=== PATIENT | male | born 1975 | race Hispanic/Latino ===

== ENCOUNTER 2023-08-20 13:09 | Emergency (ER) | payer SELFPAY ==
[2023-08-20] VITALS (8 sets, daily range): BP systolic 117–133; BP diastolic 73–94; PULSE 60–75; RESP 16–20; TEMP 36.7; O2SAT 94–100
--- NOTE | ~2023-08-20 | XR_ITS ---
EXAMINATION: XR chest 1V portable DATE: 08/20/2023 15:06 INDICATION: Left arm pain. TECHNIQUE: A single frontal view of the chest was obtained. COMPARISON: Chest 2 views 02/08/2017 FINDINGS: There is no pneumonia, pleural effusion, or pneumothorax. The heart size is normal. IMPRESSION: 1. No acute cardiopulmonary disease. Reviewed, dictated and finalized at location A.
--- NOTE | 2023-08-20 13:10 | ECG_ITS ---
Measurements Intervals [place] Rate: 64 P: 24 MN: 168 QRS: 30 QRSD: 96 T: 75 QT: 351 QTc: 364 Interpretive Statements SINUS RHYTHM CONSIDER INFERIOR INFARCT, AGE INDETERMINATE BORDERLINE T WAVE ABNORMALITY- ANTEROLAT/HIGH LAT LEADS BASELINE ARTIFACT- I, II, III, AVR, AVL, AVF BORDERLINE ECG NO PREVIOUS ECG AVAILABLE FOR COMPARISON Electronically Signed On 08-20-2023 15:20:17 CDT by Woody Lucas D.O.
--- NOTE | 2023-08-20 14:57 | ED.GENADULT ---
HPI - General Adult General Chief complaint: Chest Pain Stated complaint: not feeling well Time Seen by Provider: 08/20/23 14:19 History of Present Illness HPI narrative: 48-year-old male present to the emergency department for evaluation of left side chest pain that radiated down his left arm. Patient states the pain is typically short lasting. Patient denies any associated shortness of breath. Patient also noticed that he had some decreased movement of his 4th and 5th fingers of his right hand. Patient denies any prior history of ID and denies any prior history of CVA. Patient denies any other focal numbness or weakness. Patient has no prior history of PE or DVT. Related Data Home Medications Medication Instructions Recorded Confirmed aspirin 81 mg tablet,delayed 81 mg PO DAILY 08/29/19 08/20/23 release (Adult Low Dose Aspirin) Allergies Allergy/AdvReac Type Severity Reaction Status Date / Time No Known Allergies Allergy Verified 04/09/23 13:25 Review of Systems Review of Systems: All systems reviewed & are unremarkable except as noted in HPI and below PMFSH Past Medical History Medical History (Updated 08/20/23 @ 18:51 by Robby Boyd MD) Alcohol consumption binge drinking Essential hypertension Hyperlipidemia, unspecified (03/03/19) Pre-diabetes Sleep apnea Unilateral inguinal hernia without obstruction or gangrene Family History Family History Mother Hypertension Patient's mother is in good health Family history of elevated blood lipids Family history of type 2 diabetes mellitus Father Patient's father is in good health Social History Social History Smoking status: Never smoker Second hand tobacco smoke exposure: No Alcohol intake: current Drinks per week: 3 Substance use: never Substance use type: does not use Lack of Transportation: No Lack of Food: Never True Current Housing: I Have Housing Concerned About Future Housing: No Difficulty Paying Gas/Electric Bills: No Difficulty Paying for Meds: No Currently Unemployed: No Education: Decline to Answer Difficulty w/ Childcare or Family Care: No Living arrangements: with family Gender identity (if verbalized by the patient): Male Sexual Orientation (if Verbalized by the Patient): Straight or Heterosexual Spiritual care concerns: No Agree to blood products: Yes Exam Narrative: APPEARANCE: Well appearing, no pain, no distress, well-nourished. HEAD: normocephalic, atraumatic. EYES: PERRLA/EOMI, conjunctivae clear. NOSE: Normal no drainage EARS:TMS clear with good light reflex. THROAT: Pharynx clear, no exudate. NECK: Supple. No adenopathy, no masses. RESPIRATORY: Airway patent, respirations nonlabored. Clear to auscultation bilaterally, no rales, rhonchi, wheezing. CARDIOVASCULAR: Regular rate and rhythm without murmurs rubs or gallops. ABDOMINAL: Soft, nontender, nondistended, normal bowel sounds MUSCULOSKELETAL: Normal strength reflexes bilaterally for upper extremities. 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 NEURO: Alert. Cranial nerves II through XII intact. Good gait. Good coordination SKIN: Warm, dry. Normal Color Course Course Emergency Course: patient felt improved with treatment was encouraged to have close follow-up with his primary care physician for additional outpatient cardiac testing per Vital Signs Vital signs: Vital Signs Temperature 98.0 F 08/20/23 13:13 Pulse Rate 72 08/20/23 13:13 Respiratory Rate 16 08/20/23 13:13 Blood Pressure 133/94 H 08/20/23 13:13 Pulse Oximetry 98 08/20/23 13:13 Oxygen Delivery Room Air 08/20/23 13:13 Temperature 98.0 F 08/20/23 13:13 Pulse Rate 71 08/20/23 19:07 Respiratory Rate 18 08/20/23 19:07 Blood Pressure
[2023-08-20 15:17] LABS: Basophils Absolute Auto 0.1 K/mm3 (0.0-0.1); Basophils Percent Auto 0.6 % (0.2-1.2); Eosinophils Absolute Auto 0.1 K/mm3 (0-0.3); Eosinophils Percent Auto 1.1 % (0-4.4); Hematocrit 42.3 % (42.0-52.0); Hemoglobin 14.6 g/dL (14.0-18.0); Immature Granulocyte Absolute 0.02 K/mm3 (0.00-0.031); Immature Granulocyte Percent A 0.3 % (0-0.5); Lymphocytes Absolute Auto 1.31 K/mm3 (0.9-3.2); Lymphocytes Percent Auto 16.6 % (18.3-44.2); Mean Corpuscular HGB Conc 34.5 g/dl (32-36); Mean Corpuscular Hemoglobin 29.3 pg (26-34); Mean Corpuscular Volume 84.8 fl (80-100); Mean Platelet Volume 9.9 fl (7.4-10.4); Monocytes Absolute Auto 0.5 K/mm3 (0.1-0.6); Monocytes Percent Auto 5.9 % (2.6-8.5); Neutrophils Percent Auto 75.5 % (45.5-73.1); Platelet Count Result 206 k/mm3 (150-375); Red Blood Count 4.99 M/mm3 (4.6-6.20); Red Cell Distribution Width 13.1 % (11.5-14.5); White Blood Count 7.9 K/mm3 (4.5-10.0)
[2023-08-20 15:26] LABS: Prothrombin Time 13.8 Seconds (11.1-14.7)
[2023-08-20 15:29] LABS: Alanine Aminotransferase 26 U/L (6-50); Albumin Level 4.5 g/dL (3.5-5.1); Alkaline Phosphatase 60 U/L (38-126); Anion Gap 5 mmol/L (4-12); Aspartate Amino Transferase 26 U/L (17-59); Bilirubin,Total 0.6 mg/dL (0.2-1.3); Blood Urea Nitrogen 12 mg/dL (9-20); Calcium 9.7 mg/dL (8.4-10.2); Carbon Dioxide 29 mmol/L (22-30); Chloride 103 mmol/L (98-107); Estimated CRCL calculation 121 ml/min; Estimated Glomerular Filt Rate > 60; Glucose 131 mg/dL (65-110); Sodium 137 mmol/L (137-145)
[2023-08-20 15:40] LABS: NT Pro B Type Natriuretic Pept 63 pg/mL (19.9-100); Troponin I < 0.012 ng/mL (0.000-0.034)
[2023-08-20 15:45] LABS: Potassium 3.1 mmol/L (3.4-5.0)
[2023-08-20 16:03] LABS: D Dimer < 0.27 ug/mL (<0.48)
[2023-08-20] MEDS: ASPIRIN 81 MG CHEWABLE TABLET 324 MG PO (16:07)
[2023-08-20] MEDS: NITROGLYCERIN SL 0.4 MG TABLET SUBLINGUAL (16:08)
--- NOTE | 2023-08-20 18:09 | ECG_ITS ---
Measurements Intervals [place] Rate: 62 P: 14 [place]: 189 QRS: 34 QRSD: 97 T: 84 QT: 361 QTc: 367 Interpretive Statements SINUS RHYTHM CONSIDER INFERIOR INFARCT, AGE INDETERMINATE BORDERLINE ST-T WAVE ABNORMALITY- ANT/HIGH LEADS BASELINE ARTIFACT- I, II, AVR, AVL, AVF ABNORMAL ECG COMPARED TO ECG 08/20/2023 15:17:56 NO SIGNIFICANT CHANGES Electronically Signed On 08-21-2023 7:26:08 CDT by Woody Lucas D.O.
[2023-08-20 18:43] LABS: Troponin I < 0.012 ng/mL (0.000-0.034)
== END 2023-08-20 19:09 | disposition home or self-care (01) ==
PROVIDERS: Emergency Provider Emergency Medicine; PCP Family Medicine
DX: M79.602 Pain in left arm (principal); M79.642 Pain in left hand; I10 Essential (primary) hypertension; E78.5 Hyperlipidemia, unspecified; R73.03 Prediabetes; G47.30 Sleep apnea, unspecified; Z79.82 Long term (current) use of aspirin; R94.31 Abnormal electrocardiogram [ECG] [EKG]
CPT/HCPCS: 36415; 71045; 80053; 83880; 84484; 85025; 85380; 85610; 85730; 93005; 99284; A9270

== ENCOUNTER 2024-05-26 17:05 | Emergency (ER) | payer OTHER, SELFPAY ==
[2024-05-26 17:25] VITALS: BP 140/84; PULSE 83; RESP 16; TEMP 36.8; O2SAT 99
[2024-05-26 17:27] LABS: EDUAAPPEAR Clear; EDUABILI Negative (Negative); EDUABLOOD Negative (Negative); EDUACOLOR1 Yellow; EDUAGLUCOSE Negative (Negative); EDUAKETONE Negative (Negative); EDUALEUKO Negative (Negative); EDUANITRATE Negative (Negative); EDUAPH 5.5; EDUAPROTEIN Negative (Negative); EDUAUROBILI 0.2
--- NOTE | 2024-05-26 19:08 | ED.MALEGU ---
HPI - Male Genitourinary General Chief complaint: Urogenital-Male Stated complaint: UTI symptoms Source: patient, RN notes reviewed and old records reviewed Mode of arrival: ambulatory Limitations: no limitations History of Present Illness HPI Narrative: Patient presents accompanied by his . He is complaining of difficulty starting urine stream for the past several days. He denies any dysuria. He denies any injury or trauma. He denies any pain. Denies any fever, chills, sweats. Denies any back pain. Related Data Home Medications ?Medication ?Instructions ?Recorded ?Confirmed ?Last Taken ?Type aspirin 81 mg tablet,delayed 81 mg PO DAILY 08/29/19 10/08/23 Unknown History release (Adult Low Dose Aspirin) Allergies Allergy/AdvReac Type Severity Reaction Status Date / Time No Known Allergies Allergy Verified 05/26/24 18:03 Review of Systems Review of Systems: All systems reviewed & are unremarkable except as noted in HPI and below Constitutional: Constitutional: Reports no additional constitutional complaints ENT: Reports system reviewed and no additional complaints, except as documented Cardiovascular: Cardiovascular: Reports no additional cardiovascular complaints Respiratory: Respiratory: Reports no additional respiratory complaints Gastrointestinal: Gastrointestinal: Reports no additional gastrointestinal complaints Genitourinary: Genitourinary: Reports urinary hesitancy [facility] Past Medical History Medical History Alcohol consumption binge drinking Essential hypertension Hyperlipidemia, unspecified (03/03/19) Pre-diabetes Sleep apnea Unilateral inguinal hernia without obstruction or gangrene Family History Family History Mother Hypertension Patient's mother is in good health Family history of elevated blood lipids Family history of type 2 diabetes mellitus Father Patient's father is in good health Social History Social History Smoking status: Never smoker Second hand tobacco smoke exposure: No Alcohol intake: current Drinks per week: 3 Substance use: never Substance use type: does not use Lack of Transportation: No Lack of Food: Never True Current Housing: I Have Housing Concerned About Future Housing: No Difficulty Paying Gas/Electric Bills: No Difficulty Paying for Meds: No Currently Unemployed: No Education: Decline to Answer Difficulty w/ Childcare or Family Care: No Living arrangements: with family Gender identity (if verbalized by the patient): Male Sexual Orientation (if Verbalized by the Patient): Straight or Heterosexual Spiritual care concerns: No Agree to blood products: Yes Comments At the time of my signature, I reviewed and agree with the nursing past medical, surgical, social, and family history. There is no relevant family history pertinent to the patient complaint. Exam Const: General: cooperative, no acute distress, alert and awake Orientation/consciousness: oriented to person, oriented to place and oriented to time HENMT: Head: normal to inspection Resp: Effort & Inspection: normal respiratory effort and able to speak in complete sentences Auscultation: clear to auscultation bilaterally, no crackles, no rales, no rhonchi and no wheezes Cardio: Palpation: normal PMI Rate: regular rate Rhythm: regular rhythm Heart sounds: S1 normal heart sound present and S2 normal heart sound present : General: Yes no CVA tenderness Neuro: General: oriented to person, oriented to place and oriented to time Cranial nerves: Yes CN's II-XII intact bilaterally Psych: Appearance: grossly normal Thought process: Normal thought process present Insight: Good insight present (Psych) Judgement: Good judgement present (Psych) Course Course Level of Care: Express Care Visit Vital Signs Vital signs: Vital Signs Temperature 98.2 F 05/26/24 17:25 Pulse Rate 83 05/26/24 17:25 Respiratory Rate 16 05/26/24 17:25 Blood Pressure 140/84 05/26/24 17:25 Pulse Oximetry 99 05/26/24 17:25 Oxygen Delivery Room Air 05/26/24 17:25 Temperature 98.2 F 05/26/24 17:25 Pulse Rate 83 05/26/24 17:25 Respiratory Rate 16 05/26/24 17:25 Blood Pressure 140/84 05/26/24 17:25 Pulse Oximetry 99 05/26/24 17:25 Oxygen Delivery Room Air 05/26/24 17:25 Reviewed MDM - Male Genitourinary MDM Narrative Medical decision making narrative: UA without any signs of infection. Symptoms very likely secondary to prostate enlargement. This was discussed with patient who is encouraged follow with primary care provider. Discharge instructions reviewed with patient, as well as provided in writing per nursing staff. The instructions also include specific and strict return/GO TO THE ER as well as f/u information. All questions have been answered, and the patient deny any further questions with discharge and discharge plan. Some parts of this dictation were generated by voice recognition software and may contain typographical and/or grammatical inaccuracies. Differential Diagnosis Differential diagnosis: Likely urinary tract infection and prostatitis Medical Records Attestation: I reviewed the patient's medical records. Lab Data Attestation: I reviewed the patient's lab results. Labs: Lab Results 05/26/24 Range/Units 17:23 POC Urine Color Yellow POC Urine Clarity Clear POC Urine pH 5.5 POC Ur Specif [place] 1.030 POC Urine Protein Negative (Negative) POC Ur Glucose (UA) Negative (Negative) POC Urine Ketones Negative (Negative) POC Urine Blood Negative (Negative) POC Urine Nitrite Negative (Negative) POC Urine Bilirubin Negative (Negative) POC Urine Urobilinogen 0.2 POC U Leukocyte Esteras Negative (Negative) Discharge Plan Discharge Clinical Impression: BPH (benign prostatic hyperplasia) Patient Disposition: Home, Self-Care Condition: Stable Instructions: Antibiotic Form, Enlarged Prostate (BPH) (ED) Additional Instructions: Take medications as prescribed. Follow with primary care provider. Emergency department for new or worse symptoms Patient Language: German Prescriptions: New tamsulosin [Flomax] 0.4 mg capsule 0.4 mg PO DAILY Qty: 30 0RF No Action aspirin [Adult Low Dose Aspirin] 81 mg tablet,delayed release (DR/EC) 81 mg PO DAILY losartan 100 mg tablet See Rx Instructions .ROUTE .COMPLEX Qty: 30 5RF Dose Instruction: Take 1 tablet by mouth once daily Rx Instructions: Take 1 tablet by mouth once daily labetalol 200 mg tablet See Rx Instructions .ROUTE .COMPLEX Qty: 60 4RF Dose Instruction: Take 1 tablet by mouth twice daily Rx Instructions: Take 1 tablet by mouth twice daily hydrochlorothiazide 25 mg tablet See Rx Instructions PO DAILY Qty: 60 5RF Rx Instructions: Take 1-2 tablets orally daily; Follow-up/Referrals: Priscila Hazel MD [Primary Care Provider] - 2 Weeks Time of Disposition: 19:14
== END 2024-05-26 19:25 | disposition home or self-care (01) ==
PROVIDERS: Emergency Provider Nurse Practitioner Family; PCP Family Medicine
DX: N40.0 Benign prostatic hyperplasia without lower urinary tract symptoms (principal); I10 Essential (primary) hypertension; E78.5 Hyperlipidemia, unspecified; R73.03 Prediabetes; Z79.82 Long term (current) use of aspirin
CPT/HCPCS: 81003; 99213; G0463